=== PATIENT | female | born 1970 | race Caucasian/White ===

== ENCOUNTER 2016-04-15 19:26 | Emergency (ER) | payer OTHER ==
[2016-04-15] MEDS ORDERED: SODIUM CHLORIDE 0.9% 1,000 ML ONE (20:27)
[2016-04-15] MEDS ORDERED: DIPHENHYDRAMINE HCL 50 MG/1 ML VIAL ONE (20:27)
[2016-04-15] MEDS ORDERED: KETOROLAC TROMETHAMINE 30 MG/ML 1 ML VIAL ONE (20:27)
[2016-04-15] MEDS ORDERED: PROMETHAZINE HCL 25 MG/ML VIAL ONE (20:27)
[2016-04-15] MEDS ORDERED: SODIUM CHLORIDE 0.9% 100 ML IV ONE (20:27)
== END 2016-04-15 22:00 | disposition home or self-care (01) ==
LOC: ED 19:26
DX: G43.909 Migraine, unspecified, not intractable, without status migrainosus (principal); L04.0 Acute lymphadenitis of face, head and neck; I10 Essential (primary) hypertension; E11.9 Type 2 diabetes mellitus without complications
CPT/HCPCS: 96375 ×2; 99283 ×2; 96361; 96365; J1200; J2550; J1885; J7030; J7050